=== PATIENT | female | born 1955 | race Two or more races ===

== ENCOUNTER 2020-05-03 15:34 | Inpatient (IN) | payer MEDICAID, OTHER ==
[~2020-05-03] VITALS: Ht 160 cm; Wt 61.9 kg
[2020-05-03] MEDS ORDERED: DEXTROSE (50%) 50ML SYRG IV ONE (16:00)
[2020-05-03 16:39] LABS: Basophils # (auto) 0 10 ^3/uL (0-0.2); Basophils % (auto) 0.2 % (0.0-2.0); Eosinophils # (auto) 0 10 ^3/uL (0-0.8); Hematocrit 30.4 % (36.0-46.0); Lymphocytes # (auto) 0.8 10 ^3/uL (0.4-5.4); Lymphocytes % (auto) 11.7 % (10.0-50.0); Mean Corpuscular Hemoglobin 30.8 pg (28.0-32.0); Mean Corpuscular Volume 93.5 fL (80.0-100.0); Monocytes # (auto) 0.2 10 ^3/uL (0-1.3); Monocytes % (auto) 2.5 % (0.0-12.0); Neutrophils # (auto) 5.9 10 ^3/uL (1.6-8.6); Neutrophils % (auto) 85.6 % (37.0-80.0); Platelet Count (auto) 178 10^3/uL (140-450); Red Blood Cells 3.25 10^6/uL (4.0-5.20); Red Cell Distribution Width 14.3 % (11.8-14.3); White Blood Cell 6.9 10^3/uL (4.4-10.8)
[2020-05-03 16:56] LABS: Albumin 2.7 g/dL (3.4-5.0); Anion Gap 12 (5-15); Blood Urea Nitrogen 61 mg/dL (7-18); Calcium 7.5 mg/dL (8.5-10.1); Carbon Dioxide 28 mmol/L (21-32); Chloride 92 mmol/L (98-107); Glucose 97 mg/dL (74-106); INR 1.01 (0.9-1.15); Magnesium 2.8 mg/dL (1.6-2.6); Partial Thromboplastin Time 30.8 sec (23.0-31.2); Potassium 4.6 mmol/L (3.5-5.1); Sodium 132 mmol/L (136-145)
[2020-05-03 17:04] LABS: Alanine Aminotransferase 17 U/L (13-56); Alkaline Phosphatase 82 U/L (45-117); Aspartate Aminotransferase 46 U/L (15-37); BUN/Creatinine Ratio 4.8; Bilirubin, Total 0.4 mg/dL (0.2-1.0); Blood Alcohol < 3.0 mg/dL (0-5); GFR African American 4 mL/min; GFR Non-African American 3 mL/min; Total Protein 7.4 g/dL (6.4-8.2)
[2020-05-03] MEDS ORDERED: cefTRIAXone 1GM/50ML D5W 50 ML IV ONE (17:45)
[2020-05-03] MEDS ORDERED: DexAMETHasone SOD PHOS 10MG/1ML VIAL INJ IV ONE (17:45)
[2020-05-03] MEDS ORDERED: AZITHROMYCIN 500MG/ 250ML 250 ML IV ONE (17:45)
[2020-05-03] MEDS ORDERED: FAMOTIDINE INJECTION 40 MG in SODIUM CHL 0.9% 100 ML IV ONE (17:45)
[2020-05-03] MEDS ORDERED: NITROGLYCERIN 0.4 MG SL TAB SL PRN ×2 (19:30→21:15)
[2020-05-03] MEDS ORDERED: MORPHINE SULF INJ 2 MG/ML SYRINGE 1ML IV PRN ×2 (19:30→21:15)
[2020-05-03] MEDS ORDERED: ASPirin 81 mg TAB PO ONE (19:30)
[2020-05-03] MEDS ORDERED: ONDANSETRON HCL 4 MG/2 ML VIAL IV PRN (21:15)
[2020-05-03] MEDS ORDERED: hydrALAZINE HCL 20 MG/ML VL IV PRN (21:15)
[2020-05-03] MEDS ORDERED: DEXTROSE (50%) 50ML SYRG IV PRN (21:30)
[2020-05-03] MEDS: ACCU-CHEK COMFORT CURVE STRIP VI SCH (22:00)
[2020-05-03] MEDS: InsuLIN REG 1unit/0.01ml Soln (100units/ml) SC SCH (22:32)
[2020-05-04] VITALS (7 sets, daily range): BP systolic 91–139; BP diastolic 57–71
[2020-05-04] MEDS: ACETAMINOPHEN 500 MG TAB PO PRN ×3 (00:15→21:05)
[2020-05-04] MEDS ORDERED: LOSA-39 PO (00:44)
[2020-05-04] MEDS ORDERED: SEVE800T10 PO (00:44)
[2020-05-04] MEDS ORDERED: CLO01T PO (00:44)
[2020-05-04] MEDS ORDERED: ASPI-325 PO (00:44)
[2020-05-04] MEDS ORDERED: PARO30TA99 (00:44)
[2020-05-04] MEDS ORDERED: CLOP75TA41 PO (00:44)
[2020-05-04] MEDS ORDERED: INSREG3 SC (00:44)
[2020-05-04] MEDS ORDERED: AMLO10TA13 PO (00:44)
[2020-05-04] MEDS ORDERED: METO25TA93 PO (00:44)
[2020-05-04] MEDS ORDERED: ATOR40TA52 PO (00:44)
[2020-05-04] MEDS ORDERED: FURO40TA4 PO (00:44)
[2020-05-04] MEDS ORDERED: GABA300C10 PO (00:44)
[2020-05-04] MEDS ORDERED: INSLANTI SC (00:44)
[2020-05-04] MEDS: InsuLIN REG 1unit/0.01ml Soln (100units/ml) SC SCH ×4 (07:00→21:05)
[2020-05-04] MEDS: ACCU-CHEK COMFORT CURVE STRIP VI SCH ×4 (07:18→21:05)
[2020-05-04 08:27] LABS: Basophils # (auto) 0 10 ^3/uL (0-0.2); Basophils % (auto) 0.2 % (0.0-2.0); Eosinophils # (auto) 0 10 ^3/uL (0-0.8); Hematocrit 29.3 % (36.0-46.0); Hemoglobin 9.7 g/dL (12.2-16.2); Lymphocytes # (auto) 0.6 10 ^3/uL (0.4-5.4); Lymphocytes % (auto) 9.3 % (10.0-50.0); Mean Corpuscular Hemoglobin 30.9 pg (28.0-32.0); Mean Corpuscular Volume 93.7 fL (80.0-100.0); Monocytes # (auto) 0.1 10 ^3/uL (0-1.3); Neutrophils # (auto) 5.7 10 ^3/uL (1.6-8.6); Neutrophils % (auto) 88.5 % (37.0-80.0); Platelet Count (auto) 211 10^3/uL (140-450); Red Blood Cells 3.12 10^6/uL (4.0-5.20); Red Cell Distribution Width 14.2 % (11.8-14.3); White Blood Cell 6.4 10^3/uL (4.4-10.8)
[2020-05-04 08:48] LABS: Chloride 92 mmol/L (98-107); Potassium 4.7 mmol/L (3.5-5.1); Sodium 131 mmol/L (136-145)
[2020-05-04 09:00] LABS: Alanine Aminotransferase 17 U/L (13-56); Albumin 2.6 g/dL (3.4-5.0); Alkaline Phosphatase 81 U/L (45-117); Anion Gap 16 (5-15); Aspartate Aminotransferase 41 U/L (15-37); BUN/Creatinine Ratio 5.2; Bilirubin, Total 0.5 mg/dL (0.2-1.0); Blood Urea Nitrogen 70 mg/dL (7-18); Calcium 7.3 mg/dL (8.5-10.1); Carbon Dioxide 23 mmol/L (21-32); GFR African American 4 mL/min; GFR Non-African American 3 mL/min; Glucose 141 mg/dL (74-106); Total Protein 7.1 g/dL (6.4-8.2)
[2020-05-04 09:02] LABS: CRP High Sensitivity > 19.0 mg/dL (< 0.3)
[2020-05-04] MEDS ORDERED: D5W 5% IV SCH (10:00)
[2020-05-04] MEDS: ASPirin-EC 81 mg tab PO SCH ×2 (10:00→10:45)
[2020-05-04] MEDS: NIFEdipine ER 30 MG TAB PO SCH ×2 (10:00→10:46)
[2020-05-04] MEDS ORDERED: DEXAMETHASONE IV SCH (10:00)
[2020-05-04] MEDS: ZINC SULFATE 220mg CAP or TAB PO SCH (10:45)
[2020-05-04] MEDS: FAMOTIDINE (10MG/ML) 2ML VL IV SCH (10:45)
[2020-05-04] MEDS: ENOXAPARIN SOD 30 MG/0.3 ML SYRINGE SC SCH (10:46)
[2020-05-04] MEDS: CHOLECALCIFEROL (VITD3) 1,000UNIT=25mCg TAB PO SCH (10:46)
[2020-05-04] MEDS: DexAMETHasone SOD PHOS 10MG/1ML VIAL INJ IV SCH (11:06)
[2020-05-04] MEDS ORDERED: SODIUM CHL 0.9% 1000 ML BAG XX ONE (17:00)
[2020-05-05] VITALS (8 sets, daily range): BP systolic 105–152; BP diastolic 43–66
[2020-05-05] MEDS: ACETAMINOPHEN 500 MG TAB PO PRN ×2 (04:29→21:38)
[2020-05-05] MEDS: ACCU-CHEK COMFORT CURVE STRIP VI SCH ×4 (06:07→21:38)
[2020-05-05] MEDS: InsuLIN REG 1unit/0.01ml Soln (100units/ml) SC SCH ×4 (06:08→21:37)
[2020-05-05] MEDS: FAMOTIDINE (10MG/ML) 2ML VL IV SCH (09:30)
[2020-05-05] MEDS: DexAMETHasone SOD PHOS 10MG/1ML VIAL INJ IV SCH (09:30)
[2020-05-05] MEDS: ASPirin-EC 81 mg tab PO SCH (09:30)
[2020-05-05] MEDS: ZINC SULFATE 220mg CAP or TAB PO SCH (09:30)
[2020-05-05] MEDS: CHOLECALCIFEROL (VITD3) 1,000UNIT=25mCg TAB PO SCH (09:31)
[2020-05-05] MEDS: NIFEdipine ER 30 MG TAB PO SCH (09:31)
[2020-05-05] MEDS: ENOXAPARIN SOD 30 MG/0.3 ML SYRINGE SC SCH (09:31)
[2020-05-06 05:00] VITALS: BP 129/47
[2020-05-06] MEDS: ACETAMINOPHEN 500 MG TAB PO PRN (05:20)
[2020-05-06] MEDS: ACCU-CHEK COMFORT CURVE STRIP VI SCH ×2 (06:23→11:55)
[2020-05-06] MEDS: InsuLIN REG 1unit/0.01ml Soln (100units/ml) SC SCH ×2 (06:23→11:55)
[2020-05-06] MEDS ORDERED: SODIUM CHL 0.9% 1000 ML BAG XX ONE (07:00)
[2020-05-06 07:18] LABS: Basophils # (auto) 0 10 ^3/uL (0-0.2); Basophils % (auto) 0.1 % (0.0-2.0); Eosinophils # (auto) 0 10 ^3/uL (0-0.8); Hematocrit 31.1 % (36.0-46.0); Hemoglobin 10.3 g/dL (12.2-16.2); Lymphocytes # (auto) 0.8 10 ^3/uL (0.4-5.4); Lymphocytes % (auto) 9.4 % (10.0-50.0); Mean Corpuscular Hemoglobin 31.1 pg (28.0-32.0); Mean Corpuscular Volume 94.3 fL (80.0-100.0); Monocytes # (auto) 0.2 10 ^3/uL (0-1.3); Monocytes % (auto) 2.9 % (0.0-12.0); Neutrophils # (auto) 7.2 10 ^3/uL (1.6-8.6); Neutrophils % (auto) 87.6 % (37.0-80.0); Platelet Count (auto) 284 10^3/uL (140-450); Red Cell Distribution Width 14.2 % (11.8-14.3); White Blood Cell 8.2 10^3/uL (4.4-10.8)
[2020-05-06 08:12] LABS: Folate (Folic Acid) 13.67 ng/mL (5.38-24)
[2020-05-06 08:40] VITALS: BP 104/38
[2020-05-06] MEDS: DexAMETHasone SOD PHOS 10MG/1ML VIAL INJ IV SCH (09:47)
[2020-05-06] MEDS: FAMOTIDINE (10MG/ML) 2ML VL IV SCH (09:47)
[2020-05-06] MEDS: CHOLECALCIFEROL (VITD3) 1,000UNIT=25mCg TAB PO SCH (09:48)
[2020-05-06] MEDS: ZINC SULFATE 220mg CAP or TAB PO SCH (09:48)
[2020-05-06] MEDS: ENOXAPARIN SOD 30 MG/0.3 ML SYRINGE SC SCH (09:48)
[2020-05-06] MEDS: ASPirin-EC 81 mg tab PO SCH (09:48)
[2020-05-06] MEDS: NIFEdipine ER 30 MG TAB PO SCH (10:00)
[2020-05-06 13:11] VITALS: BP 110/52
[2020-05-06] MEDS ORDERED: FAMO20TA10 PO (14:10)
[2020-05-06] MEDS ORDERED: AZIT500T66 PO (14:10)
[2020-05-06] MEDS ORDERED: PRED20TA2 PO (14:10)
[2020-05-06] MEDS ORDERED: CHOL20009 PO (14:10)
[2020-05-06 14:36] VITALS: BP 122/48
[2020-05-06] MEDS ORDERED: EPOETIN ALFA 4,000 UNIT/ML VL SC ONE (21:00)
== END 2020-05-06 16:20 | disposition home or self-care (01) | DRG 137 ==
LOC: EDBD 15:34 → ER 15:39 → TELE 15:40 → TELE-EAST 23:46
PROVIDERS: ADMIT Hospitalist; ATTEND Hospitalist
PROC: 5A1D70Z Performance of Urinary Filtration, Intermittent, Less than 6 Hours Per Day (ICD-10-PCS; principal; 2020-05-04)
PROC: 5A1D70Z Performance of Urinary Filtration, Intermittent, Less than 6 Hours Per Day (ICD-10-PCS; 2020-05-06)
DX: U07.1 COVID-19 (principal); J96.01 Acute respiratory failure with hypoxia; E44.0 Moderate protein-calorie malnutrition; G93.41 Metabolic encephalopathy; G93.1 Anoxic brain damage, not elsewhere classified; J12.89 Other viral pneumonia; N18.6 End stage renal disease; E11.65 Type 2 diabetes mellitus with hyperglycemia; E83.51 Hypocalcemia; I12.0 Hypertensive chronic kidney disease with stage 5 chronic kidney disease or end stage renal disease; E87.1 Hypo-osmolality and hyponatremia; N25.81 Secondary hyperparathyroidism of renal origin; F03.90 Unspecified dementia, unspecified severity, without behavioral disturbance, psychotic disturbance, mood disturbance, and anxiety; D63.1 Anemia in chronic kidney disease; F32.9 Major depressive disorder, single episode, unspecified; Z88.0 Allergy status to penicillin; Z91.041 Radiographic dye allergy status; Z88.5 Allergy status to narcotic agent; Z86.73 Personal history of transient ischemic attack (TIA), and cerebral infarction without residual deficits; Z99.2 Dependence on renal dialysis
CPT/HCPCS: 36415; 70450; 71045; 80053; 80320; 82607; 82728; 82746; 82962; 83605; 83735; 84443; 84484; 85025; 85379; 85610; 85730; 86141; 87040; 87426; 87804; 90935; 93005; G0378; J0696; J1100; J1815; J2405; J3490; J7060